=== PATIENT | female | born 1935 | race Caucasian/White ===

== ENCOUNTER 2024-07-05 17:42 | Emergency (ER) | payer MEDICARE, SELFPAY ==
[2024-07-05 17:54] VITALS: BP 133/81
--- NOTE | 2024-07-05 18:26 | ED.MUSCINJ ---
HPI-Injury
General
Chief Complaint: Fall
Source: patient
Exam Limitations: none
Time Seen by Provider: 07/05/24 18:08
History of Present Illness-Injury
Is this injury a work related problem?: No
Is pt an associate of [facility]?: No
Initial Injury comments:
This is a 88 year old female that comes in with c/o left knee swelling. States that this morning she got up and turned on the lights. States that she must have hit something and she fell. States that she went down on her knee. States that she was
doing OK and then later in the day her knee started to swell. Patient has been able to walk on her leg. Denies any fever, chills, chest pain, SOB, abd pain, nausea, vomiting, diarrhea, headache, dizziness, urinary burning. Denies hitting her head.
Past History
Past History
ED Past Medical History: CVA, HTN, Hypercholesterolemia, Other (Dementia, PNA, CSF leak) and Other (Arthritis, hearing impaired)
ED Past Surgical History: Other (Hernia, craniotomy)
Social History
Tobacco: Non-smoker
Alcohol: None
Drug: None
Personal:
Living: with family
Family History
Family History: Negative Diabetes
Review of Systems
Review of Systems
All Other Systems: ROS reviewed and negative except as documented in HPI and ROS
Constitutional: Reports no symptoms; Denies fever or chills
EENT: Reports no symptoms
Respiratory: Reports no symptoms
Cardiac: Reports no symptoms
ABD/GI: Reports no symptoms
: Reports no symptoms
Musculoskeletal: Reports joint swelling (left knee with pain)
Skin: Reports no symptoms
Neurological: Reports no symptoms; Denies dizzy or headache
Psychiatric: Reports no symptoms
Musculoskeletal Injury Exam
Musculoskeletal Injury Exam
Left Lateral Knee:
Pain with Movement?: Mild
Tender to palpation?: Mild
Soft tissue swelling?: Moderate
External deformity and angulation?: None
Joint effusion?: None
Contusion?: Moderate
Hematoma-local bleeding into tissue?: Moderate
Strain- Sprain- Tear (Connective tissue injury)?: None
Crepitus with movement?: No
Joint instability?: No
Malalignment/deformity?: No
Range of motion: Full
Distal skin color and temperature: normal-warm & good color
Capillary Refill: normal
Normal distal neurovascular exam?: Yes
Phy Exam
General Physical Exam
General Presentation: well appearing and no apparent distress
General age: appears stated age
General Skin: warm and dry
General Habitus: elderly
General Mental: alert
General Hydration: appears well hydrated
Eye Exam
Eye Exam: EOMI
Musculoskeletal Exam
Musculoskeletal Exam: full ROM and joint swelling (Left knee swelling with contusion noted. Tenderness with palpation on the lateral aspect of the distal knee. patient able to flex knee with only slight discomfort. Swelling down into ankle)
Skin Exam
Skin Exam: normal color, warm/dry, no petechia and other (Contusion left knee )
Psychiatric Exam
Psychiatric Exam: normal mood/affect
Injury Course
Orders/Labs/Results
Orders:
Orders
07/05/24 17:53
CR Knee - Left 4 Or More View* Urgent
Comment:
Reason For Exam: Injured in fall, swollen and tender
07/05/24 19:16
Avinash Wrap Left-Treatment ONCE
MDM/Problems Addressed
Differential Diagnosis Includes:
Contusion left knee. knee fracture
MDM/Problems Addressed:
This is a 88 year old female that comes in with c/o left knee swelling. States that she fell this morning and then later in the day the knee started to swell.
Will get X-ray.
back into see patient and family. Explained that there are no fracture noted. This is just a contusion. Will have patient elevated the knee, Ice and use an Avinash wrap to help decrease the swelling. Patient to use Tylenol as needed for pain. Follow up
with the family doctor. Return with any concerns.
Chronic conditions affecting care:
NA
Acute Exacerbation and/or Progression of Chronic Illness:
NA
*Radiology
Radiology exam reviewed: preliminary read by ED provider (Left knee- Negative for fracture or dislocation. ) and radiology read reviewed (Left knee No findings to suggest recent cortical fracture. Degenerative changes wit progression. Prominent soft
tissue swelling medially and anteriorly. Cannot exclude prepatellar bursitis. )
*Pulse Oximetry
Patient hypoxic: no
*EKG
Interpreted by ED Provider?: NA
Rate: EKG- N/A
*Porter Head Interpretation
Rate: Porter [place]- N/A
*Critical Care Note
Total Time (30-74mins, 75-104mins- exclusive of procedures): Not Applicable
ED Attending Note
-
Portions of this chart may have been created with voice recognition software.� Occasional wrong word or��sound alike� substitutions may have occurred due to the inherent limitations of voice recognition software.
Discharge Plan
Departure
Patient Disposition: Home (Routine Discharge)
Date of Disposition: 07/05/24
Time of Disposition: 19:17
Patient with high blood pressure during this ER visit?: Yes
Condition: Good
Covid-19: Not Applicable
Discharge Problem:
Contusion of knee, left
Instructions: Contusion (DC), Preventing falls in adults, Knee Pain (DC), BLOOD PRESSURE, RICE Therapy
Prescriptions:
No Action
mrhnegmg-xvo-NA-lycopen-lutein [Centrum Silver] 1 EACH tablet
1 ea PO DAILY
atorvastatin 20 MG tablet
20 mg PO DAILY
amlodipine 2.5 MG tablet
2.5 mg PO DAILY
aspirin 81 MG tablet,chewable
81 mg PO DAILY
metformin 500 MG tablet
500 mg PO DAILY Qty: 30 0RF
cephalexin 500 MG capsule
500 mg PO BID Qty: 14 0RF
Activity Restrictions/Additional Instructions:
As discussed, there are no fracture one X-ray. This is a contusion of the left knee. Please elevated when sitting around. Ice to the knee. Use the avinash wrap when up moving around. Tylenol 1000mg every 6 hours for pain. The x-ray does show that the
Degenerative changes have increased. Follow up with the family doctor. IF YOU HAVE ANY OTHER CONCERNS PLEASE RETURN TO THE EMERGENCY ROOM.
Interventions
Interventions:
*Risk Screen - Suicide Last Done: 07/05/24 19:39
*General Assessment Last Done: 07/05/24 19:39
*Neglect/Abuse Screening Last Done: 07/05/24 19:39
ED- Fall Risk Assessment Last Done: 07/05/24 19:39
*ED COVID-19 Vaccine History Last Done: 07/05/24 19:39
*Nursing Disposition Last Done: 07/05/24 19:39
ED-Musculoskeletal Assessment Last Done: 07/05/24 19:38
ED- Neurological Assessment Last Done: 07/05/24 19:38
ED-Skin Assessment Last Done: 07/05/24 19:38
Discharge Date and Time
Discharge Date/Time: 07/05/24 19:40
Print Language: DANISH
[2024-07-05 19:38] VITALS: BP 130/78
== END 2024-07-05 19:40 | disposition home or self-care (01) ==
LOC: EMR 17:42
PROVIDERS: EMERGENCY PHYSICIAN Emergency Medicine; FAMILY PHYSICIAN Family Medicine
DX: S80.02XA Contusion of left knee, initial encounter (principal); M25.462 Effusion, left knee; W18.30XA Fall on same level, unspecified, initial encounter; I10 Essential (primary) hypertension; E78.00 Pure hypercholesterolemia, unspecified; F03.90 Unspecified dementia, unspecified severity, without behavioral disturbance, psychotic disturbance, mood disturbance, and anxiety; M19.90 Unspecified osteoarthritis, unspecified site; Z86.73 Personal history of transient ischemic attack (TIA), and cerebral infarction without residual deficits; Z87.01 Personal history of pneumonia (recurrent); Z88.1 Allergy status to other antibiotic agents
CPT/HCPCS: 99283; 73564

== ENCOUNTER → 2024-10-05 15:17 | Outpatient (REF) | payer MEDICARE, SELFPAY | LOC: RAD 15:17 | PROVIDERS: ATTENDING PHYSICIAN Family Medicine | DX: R60.0 Localized edema (principal) | CPT/HCPCS: 93971 ==